=== PATIENT | male | born 1975 | race Caucasian/White ===

== ENCOUNTER 2023-08-14 10:45 | Outpatient (OUT) | payer OTHER, SELFPAY ==
--- NOTE | 2023-08-14 10:53 | XR_ITS ---
The [address] [address] Patient Name: PRAVIN SMYTH MRN: [id number] date: 1975 Sex: M Assigned Patient Location: [facility] Current Patient Location: [facility] Accession/Order Number: [id number] Exam Date: 08/14/2023 11:00 Report Date: 08/14/2023 11:41 At the request of: MIHIR YUEN Procedure: XR shoulder KASHMIR min 2V PROCEDURE: XR shoulder KASHMIR min 2V HISTORY: Right Shoulder Sprain COMPARISON: None. FINDINGS: BONES:No fracture, acute abnormality, or significant arthropathy. SOFT TISSUES:No visible soft tissue swelling. EFFUSION:None visible. OTHER: Negative. XR/XR shoulder KASHMIR min 2V IMPRESSION: 1. No acute or suspicious abnormality of the right or left shoulder. Electronically authenticated by: ARIANA PAIZ Date: 08/14/2023 11:41
== END 2023-08-14 10:46 | disposition home or self-care (01) ==
LOC: RAD 10:48
PROVIDERS: Visit Provider Nurse Practitioner Family
DX: S43.401A Unspecified sprain of right shoulder joint, initial encounter (principal)
CPT/HCPCS: 73030